=== PATIENT | male | born 1945 | race Two or more races ===

== ENCOUNTER 2020-07-26 15:22 | Emergency (ER) | payer OTHER ==
[~2020-07-26] VITALS: Ht 167.6 cm; Wt 74.8 kg
[2020-07-26 16:38] LABS: Basophils # (auto) 0 10 ^3/uL (0-0.2); Basophils % (auto) 0.1 % (0.0-2.0); Eosinophils # (auto) 0 10 ^3/uL (0-0.8); Hematocrit 43.4 % (41.0-53.0); Hemoglobin 15.1 g/dL (13.5-17.5); Lymphocytes # (auto) 0.6 10 ^3/uL (0.4-5.4); Lymphocytes % (auto) 9.9 % (10.0-50.0); Mean Corpuscular Hemoglobin 32.4 pg (28.0-32.0); Mean Corpuscular Hgb Conc. 34.7 g/dL (32.0-36.0); Mean Corpuscular Volume 93.5 fL (80.0-100.0); Monocytes # (auto) 0.6 10 ^3/uL (0-1.3); Monocytes % (auto) 9.1 % (0.0-12.0); Neutrophils % (auto) 80.9 % (37.0-80.0); Platelet Count (auto) 158 10^3/uL (140-450); Red Blood Cells 4.64 10^6/uL (4.5-5.90); Red Cell Distribution Width 12.8 % (11.8-14.3); White Blood Cell 6.1 10^3/uL (4.4-10.8)
[2020-07-26] MEDS ORDERED: ACETAMINOPHEN 500 MG TAB PO ONE (16:45)
[2020-07-26 16:47] LABS: INR 0.97 (0.9-1.15)
[2020-07-26 16:55] LABS: Albumin 3.5 g/dL (3.4-5.0); Calcium 8.8 mg/dL (8.5-10.1); Magnesium 2.1 mg/dL (1.6-2.6); Potassium 3.9 mmol/L (3.5-5.1)
[2020-07-26 16:59] LABS: BUN/Creatinine Ratio 17.7; Bilirubin, Total 0.4 mg/dL (0.2-1.0); Total Protein 8.3 g/dL (6.4-8.2)
[2020-07-26 19:58] VITALS: BP 130/71
== END 2020-07-26 22:39 | disposition home or self-care (01) ==
LOC: ER 15:22 → EDBD 15:22 → ER 22:39
DX: U07.1 COVID-19 (principal); J18.9 Pneumonia, unspecified organism; E11.9 Type 2 diabetes mellitus without complications; I10 Essential (primary) hypertension
CPT/HCPCS: 36415; 71045; 74018; 80053; 83605; 83690; 83735; 84484; 85025; 85610; 87426; 99284; C9803; U0003; 93005

== ENCOUNTER 2020-07-28 16:20 | Inpatient (IN) | payer OTHER ==
[~2020-07-28] VITALS: Ht 167.6 cm; Wt 63.0 kg
[2020-07-28] MEDS ORDERED: CHOLECALCIFEROL (VITD3) 2,000 UNIT CAP/TAB PO ONE (17:00)
[2020-07-28] MEDS ORDERED: ASCORBIC ACID 500 MG TAB PO ONE (17:00)
[2020-07-28] MEDS ORDERED: methylPREDNISolone SOD SUCC 125 MG/2 ML VL IV ONE (17:00)
[2020-07-28] MEDS ORDERED: ZINC SULFATE 220mg CAP or TAB PO ONE (17:00)
[2020-07-28] MEDS ORDERED: ONDANSETRON HCL 4 MG/2 ML VIAL IV ONE (18:45)
[2020-07-28 19:56] LABS: Basophils # (auto) 0 10 ^3/uL (0-0.2); Basophils % (auto) 0.1 % (0.0-2.0); Eosinophils # (auto) 0 10 ^3/uL (0-0.8); Hematocrit 41.9 % (41.0-53.0); Hemoglobin 14.6 g/dL (13.5-17.5); Lymphocytes # (auto) 0.8 10 ^3/uL (0.4-5.4); Lymphocytes % (auto) 9.1 % (10.0-50.0); Mean Corpuscular Hemoglobin 32.3 pg (28.0-32.0); Mean Corpuscular Hgb Conc. 34.8 g/dL (32.0-36.0); Mean Corpuscular Volume 92.7 fL (80.0-100.0); Monocytes # (auto) 0.8 10 ^3/uL (0-1.3); Monocytes % (auto) 9.8 % (0.0-12.0); Nucleated Red Blood Cells % 0.2 %; Red Blood Cells 4.52 10^6/uL (4.5-5.90); Red Cell Distribution Width 12.9 % (11.8-14.3); White Blood Cell 8.7 10^3/uL (4.4-10.8)
[2020-07-28 20:09] LABS: Potassium 4.5 mmol/L (3.5-5.1)
[2020-07-28 20:22] LABS: Albumin 3.2 g/dL (3.4-5.0); BUN/Creatinine Ratio 18.3; Bilirubin, Total 0.4 mg/dL (0.2-1.0); CRP High Sensitivity 13.5 mg/dL (< 0.3)
[2020-07-28] MEDS ORDERED: NITROGLYCERIN 0.4 MG SL TAB SL PRN (23:00)
[2020-07-28] MEDS ORDERED: MORPHINE SULFATE INJECTION 2 MG/ML SYRG IV PRN (23:00)
[2020-07-28] MEDS ORDERED: DEXTROSE (50%) 50ML SYRG IV PRN (23:00)
[2020-07-28] MEDS ORDERED: SODIUM CHLORIDE 0.9% 1,000 ML IV SCH (23:00)
[2020-07-28] MEDS ORDERED: guaiFENesin-DM 100/10mg/5ml SYR PO PRN (23:30)
[2020-07-28] MEDS ORDERED: guaiFENesin-DM 100/10mg/5ml SYR ONE (23:54)
[2020-07-29 06:23] LABS: Basophils # (auto) 0 10 ^3/uL (0-0.2); Basophils % (auto) 0.1 % (0.0-2.0); Eosinophils # (auto) 0 10 ^3/uL (0-0.8); Hematocrit 40.2 % (41.0-53.0); Hemoglobin 14.1 g/dL (13.5-17.5); Lymphocytes # (auto) 0.9 10 ^3/uL (0.4-5.4); Mean Corpuscular Hemoglobin 32.7 pg (28.0-32.0); Mean Corpuscular Volume 93.4 fL (80.0-100.0); Monocytes # (auto) 0.6 10 ^3/uL (0-1.3); Monocytes % (auto) 6.7 % (0.0-12.0); Neutrophils # (auto) 6.8 10 ^3/uL (1.6-8.6); Neutrophils % (auto) 82.2 % (37.0-80.0); Nucleated Red Blood Cells % 0.1 %; Red Cell Distribution Width 12.8 % (11.8-14.3); White Blood Cell 8.3 10^3/uL (4.4-10.8)
[2020-07-29 06:51] LABS: Albumin 2.8 g/dL (3.4-5.0); Calcium 8.9 mg/dL (8.5-10.1); Potassium 4.1 mmol/L (3.5-5.1)
[2020-07-29 07:00] LABS: Bilirubin, Total 0.2 mg/dL (0.2-1.0); Total Protein 7.2 g/dL (6.4-8.2)
[2020-07-29] MEDS: InsuLIN REG 1unit/0.01ml Soln (100units/ml) SC SCH ×4 (07:00→22:00)
[2020-07-29] MEDS: ACCU-CHEK COMFORT CURVE STRIP VI SCH ×4 (07:24→22:00)
[2020-07-29] MEDS: guaiFENesin-DM 100/10mg/5ml SYR PO PRN ×3 (08:57→20:38)
[2020-07-29] MEDS ORDERED: REMDESIVIR PER PHARMACY 0 ML IV SCH (10:15)
[2020-07-29] MEDS: BUDESONIDE (INHALATION) 180 MCG IH IN SCH ×2 (10:39→19:24)
[2020-07-29] MEDS: ZINC SULFATE 220mg CAP or TAB PO SCH (10:41)
[2020-07-29] MEDS: MULTIPLE VITAMIN TAB PO SCH (10:41)
[2020-07-29] MEDS: FAMOTIDINE 20 MG TAB PO SCH ×2 (10:42→22:00)
[2020-07-29] MEDS: CHOLECALCIFEROL (VITD3) 2,000 UNIT CAP/TAB PO SCH (10:42)
[2020-07-29] MEDS: ASCORBIC ACID 500 MG TAB PO SCH ×2 (10:42→22:32)
[2020-07-29] MEDS: ENOXAPARIN SOD 40 MG/0.4 ML SYRINGE SC SCH (10:42)
[2020-07-29] MEDS: DOXYCYCLINE 100MG/250ML 250 ML IV SCH ×2 (10:43→22:00)
[2020-07-29] MEDS: DexAMETHasone SOD PHOS 10MG/1ML VIAL INJ IV SCH (10:43)
[2020-07-29] MEDS: ACETAMINOPHEN 325 MG TAB PO PRN ×2 (12:28→18:50)
[2020-07-29] MEDS ORDERED: FUROSEMIDE 20 MG/2 ML VIAL IV ONE (14:15)
[2020-07-29] MEDS ORDERED: REMDESIVIR 200 MG in NS 210ml LOADING DOSE ADULT IV ONE (15:00)
[2020-07-29 17:23] VITALS: BP 146/78
[2020-07-29 17:38] VITALS: BP 144/75
[2020-07-29 19:32] VITALS: BP 139/89
[2020-07-29] MEDS: HYDROcodone-ACET 5/325MG TAB PO PRN (22:49)
[2020-07-30] VITALS: BP 133/79
[2020-07-30] MEDS: PROMETHAZINE W/CODEINE 5 ML ORAL SYRUP PO PRN ×3 (03:39→17:46)
[2020-07-30] MEDS: InsuLIN REG 1unit/0.01ml Soln (100units/ml) SC SCH ×4 (06:02→22:16)
[2020-07-30] MEDS: ACCU-CHEK COMFORT CURVE STRIP VI SCH ×4 (06:02→22:08)
[2020-07-30] MEDS: HYDROcodone-ACET 5/325MG TAB PO PRN ×4 (07:58→23:18)
[2020-07-30 08:00] VITALS: BP 133/63
[2020-07-30 08:21] LABS: Basophils # (auto) 0 10 ^3/uL (0-0.2); Basophils % (auto) 0.2 % (0.0-2.0); Eosinophils # (auto) 0 10 ^3/uL (0-0.8); Hematocrit 42.4 % (41.0-53.0); Hemoglobin 14.5 g/dL (13.5-17.5); Lymphocytes # (auto) 1.4 10 ^3/uL (0.4-5.4); Lymphocytes % (auto) 8.2 % (10.0-50.0); Mean Corpuscular Hemoglobin 31.9 pg (28.0-32.0); Mean Corpuscular Hgb Conc. 34.3 g/dL (32.0-36.0); Mean Corpuscular Volume 93.1 fL (80.0-100.0); Monocytes # (auto) 1.3 10 ^3/uL (0-1.3); Monocytes % (auto) 7.5 % (0.0-12.0); Neutrophils % (auto) 84.1 % (37.0-80.0); Nucleated Red Blood Cells % 0.1 %; Red Blood Cells 4.55 10^6/uL (4.5-5.90); White Blood Cell 16.7 10^3/uL (4.4-10.8)
[2020-07-30 08:49] LABS: Potassium 4.1 mmol/L (3.5-5.1)
[2020-07-30 09:04] LABS: Albumin 3.1 g/dL (3.4-5.0); Bilirubin, Total 0.3 mg/dL (0.2-1.0); Calcium 8.8 mg/dL (8.5-10.1); Total Protein 7.8 g/dL (6.4-8.2)
[2020-07-30] MEDS ORDERED: FUROSEMIDE 20 MG/2 ML VIAL IV SCH (10:00)
[2020-07-30] MEDS: BUDESONIDE (INHALATION) 180 MCG IH IN SCH ×2 (10:40→20:25)
[2020-07-30] MEDS: DexAMETHasone SOD PHOS 10MG/1ML VIAL INJ IV SCH (10:40)
[2020-07-30] MEDS: ZINC SULFATE 220mg CAP or TAB PO SCH (10:41)
[2020-07-30] MEDS: DOXYCYCLINE 100MG/250ML 250 ML IV SCH ×2 (10:41→22:08)
[2020-07-30] MEDS: CHOLECALCIFEROL (VITD3) 2,000 UNIT CAP/TAB PO SCH (10:41)
[2020-07-30] MEDS: ASCORBIC ACID 500 MG TAB PO SCH ×2 (10:41→22:07)
[2020-07-30] MEDS: FAMOTIDINE 20 MG TAB PO SCH ×2 (10:41→22:07)
[2020-07-30] MEDS: MULTIPLE VITAMIN TAB PO SCH (10:41)
[2020-07-30] MEDS: ENOXAPARIN SOD 40 MG/0.4 ML SYRINGE SC SCH (10:42)
[2020-07-30] MEDS: REMDESIVIR 100mg 100 MG in SODIUM CHL 0.9% 230 ML IV SCH (15:14)
[2020-07-30 16:00] VITALS: BP 132/75
[2020-07-30] MEDS: ALBUTEROL SULF HFA 90MCG INH 200DOSE IN PRN (20:25)
[2020-07-31] VITALS: BP 154/84
[2020-07-31] MEDS: PROMETHAZINE W/CODEINE 5 ML ORAL SYRUP PO PRN ×4 (02:20→23:58)
[2020-07-31] MEDS: HYDROcodone-ACET 5/325MG TAB PO PRN ×6 (05:08→23:57)
[2020-07-31] MEDS: InsuLIN REG 1unit/0.01ml Soln (100units/ml) SC SCH ×4 (06:50→21:54)
[2020-07-31] MEDS: ACCU-CHEK COMFORT CURVE STRIP VI SCH ×4 (06:50→21:46)
[2020-07-31 08:00] VITALS: BP 148/79
[2020-07-31 08:01] LABS: Basophils # (auto) 0 10 ^3/uL (0-0.2); Eosinophils # (auto) 0 10 ^3/uL (0-0.8); Hematocrit 40.2 % (41.0-53.0); Hemoglobin 13.7 g/dL (13.5-17.5); Lymphocytes # (auto) 0.8 10 ^3/uL (0.4-5.4); Mean Corpuscular Hemoglobin 31.8 pg (28.0-32.0); Mean Corpuscular Hgb Conc. 34.1 g/dL (32.0-36.0); Mean Corpuscular Volume 93.2 fL (80.0-100.0); Monocytes % (auto) 7.9 % (0.0-12.0); Neutrophils # (auto) 11.4 10 ^3/uL (1.6-8.6); Neutrophils % (auto) 86.1 % (37.0-80.0); Red Blood Cells 4.31 10^6/uL (4.5-5.90); Red Cell Distribution Width 12.8 % (11.8-14.3); White Blood Cell 13.2 10^3/uL (4.4-10.8)
[2020-07-31 08:21] LABS: Albumin 2.5 g/dL (3.4-5.0); Calcium 8.6 mg/dL (8.5-10.1); Potassium 4.3 mmol/L (3.5-5.1)
[2020-07-31 08:25] LABS: BUN/Creatinine Ratio 33.3; Bilirubin, Total 0.4 mg/dL (0.2-1.0); Total Protein 6.8 g/dL (6.4-8.2)
[2020-07-31] MEDS: ZINC SULFATE 220mg CAP or TAB PO SCH (10:15)
[2020-07-31] MEDS: MULTIPLE VITAMIN TAB PO SCH (10:15)
[2020-07-31] MEDS: BUDESONIDE (INHALATION) 180 MCG IH IN SCH ×2 (10:15→18:36)
[2020-07-31] MEDS: ASCORBIC ACID 500 MG TAB PO SCH ×2 (10:15→21:45)
[2020-07-31] MEDS: DexAMETHasone SOD PHOS 10MG/1ML VIAL INJ IV SCH (10:15)
[2020-07-31] MEDS: FAMOTIDINE 20 MG TAB PO SCH ×2 (10:15→21:45)
[2020-07-31] MEDS: CHOLECALCIFEROL (VITD3) 2,000 UNIT CAP/TAB PO SCH (10:16)
[2020-07-31] MEDS: ENOXAPARIN SOD 40 MG/0.4 ML SYRINGE SC SCH (10:16)
[2020-07-31] MEDS: DOXYCYCLINE 100MG/250ML 250 ML IV SCH ×2 (11:26→21:46)
[2020-07-31] MEDS: FUROSEMIDE 40 MG/4 ML VIAL IV SCH (11:26)
[2020-07-31] MEDS: ONDANSETRON HCL 4 MG/2 ML VIAL IV PRN (11:27)
[2020-07-31] MEDS: REMDESIVIR 100mg 100 MG in SODIUM CHL 0.9% 230 ML IV SCH (15:24)
[2020-07-31 16:24] VITALS: BP 143/81
[2020-07-31] MEDS: ALBUTEROL SULF HFA 90MCG INH 200DOSE IN PRN (18:36)
[2020-07-31] MEDS: DOCUSATE SOD 100 MG CAP PO PRN (21:46)
[2020-08-01] VITALS: BP 146/89
[2020-08-01 01:00] VITALS: BP 146/89
[2020-08-01] MEDS: HYDROcodone-ACET 5/325MG TAB PO PRN ×3 (05:38→13:20)
[2020-08-01] MEDS: InsuLIN REG 1unit/0.01ml Soln (100units/ml) SC SCH ×4 (05:48→22:00)
[2020-08-01] MEDS: ACCU-CHEK COMFORT CURVE STRIP VI SCH ×4 (05:48→22:00)
[2020-08-01] MEDS: ALBUTEROL SULF HFA 90MCG INH 200DOSE IN PRN ×2 (06:28→18:49)
[2020-08-01] MEDS: BUDESONIDE (INHALATION) 180 MCG IH IN SCH ×2 (06:28→18:49)
[2020-08-01 07:29] LABS: Basophils # (auto) 0 10 ^3/uL (0-0.2); Eosinophils # (auto) 0 10 ^3/uL (0-0.8); Hematocrit 41.1 % (41.0-53.0); Lymphocytes # (auto) 0.6 10 ^3/uL (0.4-5.4); Lymphocytes % (auto) 4.3 % (10.0-50.0); Mean Corpuscular Hemoglobin 31.7 pg (28.0-32.0); Mean Corpuscular Hgb Conc. 34.1 g/dL (32.0-36.0); Mean Corpuscular Volume 92.8 fL (80.0-100.0); Monocytes % (auto) 7.3 % (0.0-12.0); Neutrophils # (auto) 12.4 10 ^3/uL (1.6-8.6); Neutrophils % (auto) 88.4 % (37.0-80.0); Red Blood Cells 4.43 10^6/uL (4.5-5.90); Red Cell Distribution Width 12.5 % (11.8-14.3)
[2020-08-01 08:00] VITALS: BP 140/85
[2020-08-01 08:16] LABS: Albumin 2.7 g/dL (3.4-5.0); BUN/Creatinine Ratio 27.9; Bilirubin, Total 0.8 mg/dL (0.2-1.0); Calcium 8.5 mg/dL (8.5-10.1); Total Protein 7.1 g/dL (6.4-8.2)
[2020-08-01] MEDS: ZINC SULFATE 220mg CAP or TAB PO SCH (09:48)
[2020-08-01] MEDS: MULTIPLE VITAMIN TAB PO SCH (09:48)
[2020-08-01] MEDS: DexAMETHasone SOD PHOS 10MG/1ML VIAL INJ IV SCH (09:48)
[2020-08-01] MEDS: DOXYCYCLINE 100MG/250ML 250 ML IV SCH ×2 (09:48→22:37)
[2020-08-01] MEDS: FAMOTIDINE 20 MG TAB PO SCH ×2 (09:49→22:37)
[2020-08-01] MEDS: ASCORBIC ACID 500 MG TAB PO SCH ×2 (09:49→22:36)
[2020-08-01] MEDS: CHOLECALCIFEROL (VITD3) 2,000 UNIT CAP/TAB PO SCH (09:49)
[2020-08-01] MEDS: ENOXAPARIN SOD 40 MG/0.4 ML SYRINGE SC SCH (09:49)
[2020-08-01] MEDS: FUROSEMIDE 40 MG/4 ML VIAL IV SCH (09:50)
[2020-08-01] MEDS: ONDANSETRON HCL 4 MG/2 ML VIAL IV PRN (09:50)
[2020-08-01] MEDS: PROMETHAZINE W/CODEINE 5 ML ORAL SYRUP PO PRN ×2 (12:13→18:25)
[2020-08-01] MEDS: REMDESIVIR 100mg 100 MG in SODIUM CHL 0.9% 230 ML IV SCH (15:15)
[2020-08-01 16:00] VITALS: BP 141/83
[2020-08-01] MEDS ORDERED: ACETAMINOPHEN 650 mg PER 20.3 mL UD PO ONE (16:30)
[2020-08-01] MEDS ORDERED: methylPREDNISolone SOD SUCC 40 MG/ML VL IV ONE (16:30)
[2020-08-01] MEDS ORDERED: diphenhdrAMINE HCL 50 MG/1 ML VL IV ONE (16:30)
[2020-08-01] MEDS ORDERED: TOCILIZUMAB 400 MG in SODIUM CHL 0.9% 80 ML IV ONE (17:00)
[2020-08-01 18:00] VITALS: BP 141/82
[2020-08-01] MEDS: DOCUSATE SOD 100 MG CAP PO PRN (22:36)
[2020-08-02] VITALS: BP 139/83
[2020-08-02] MEDS: PROMETHAZINE W/CODEINE 5 ML ORAL SYRUP PO PRN ×2 (00:35→13:17)
[2020-08-02 00:50] VITALS: BP 139/83
[2020-08-02] MEDS: ONDANSETRON HCL 4 MG/2 ML VIAL IV PRN ×2 (00:52→20:19)
[2020-08-02] MEDS: HYDROcodone-ACET 5/325MG TAB PO PRN ×3 (03:45→20:20)
[2020-08-02] MEDS: BUDESONIDE (INHALATION) 180 MCG IH IN SCH ×2 (06:07→19:06)
[2020-08-02] MEDS: ALBUTEROL SULF HFA 90MCG INH 200DOSE IN PRN ×2 (06:07→19:06)
[2020-08-02] MEDS: ACCU-CHEK COMFORT CURVE STRIP VI SCH ×4 (06:24→21:20)
[2020-08-02] MEDS: InsuLIN REG 1unit/0.01ml Soln (100units/ml) SC SCH ×4 (06:24→21:21)
[2020-08-02 06:36] LABS: Basophils # (auto) 0 10 ^3/uL (0-0.2); Basophils % (auto) 0.1 % (0.0-2.0); Eosinophils # (auto) 0 10 ^3/uL (0-0.8); Lymphocytes # (auto) 0.6 10 ^3/uL (0.4-5.4); Mean Corpuscular Hemoglobin 31.5 pg (28.0-32.0); Mean Corpuscular Hgb Conc. 34.2 g/dL (32.0-36.0); Monocytes % (auto) 6.7 % (0.0-12.0); Neutrophils # (auto) 13.2 10 ^3/uL (1.6-8.6); Neutrophils % (auto) 89.2 % (37.0-80.0); Nucleated Red Blood Cells % 0.2 %; Red Blood Cells 4.46 10^6/uL (4.5-5.90); Red Cell Distribution Width 12.7 % (11.8-14.3); White Blood Cell 14.7 10^3/uL (4.4-10.8)
[2020-08-02 07:06] LABS: Potassium 4.3 mmol/L (3.5-5.1)
[2020-08-02 07:20] LABS: Albumin 2.4 g/dL (3.4-5.0); BUN/Creatinine Ratio 26.1; Bilirubin, Total 0.8 mg/dL (0.2-1.0); Calcium 8.3 mg/dL (8.5-10.1); Total Protein 6.7 g/dL (6.4-8.2)
[2020-08-02 08:00] VITALS: BP 149/68
[2020-08-02] MEDS: ZINC SULFATE 220mg CAP or TAB PO SCH (09:47)
[2020-08-02] MEDS: MULTIPLE VITAMIN TAB PO SCH (09:47)
[2020-08-02] MEDS: FAMOTIDINE 20 MG TAB PO SCH ×2 (09:48→20:20)
[2020-08-02] MEDS: ASCORBIC ACID 500 MG TAB PO SCH ×2 (09:48→20:20)
[2020-08-02] MEDS: CHOLECALCIFEROL (VITD3) 2,000 UNIT CAP/TAB PO SCH (09:48)
[2020-08-02] MEDS: ENOXAPARIN SOD 40 MG/0.4 ML SYRINGE SC SCH (09:58)
[2020-08-02] MEDS: DexAMETHasone SOD PHOS 10MG/1ML VIAL INJ IV SCH (09:58)
[2020-08-02] MEDS: FUROSEMIDE 40 MG/4 ML VIAL IV SCH (09:58)
[2020-08-02] MEDS ORDERED: ACETAMINOPHEN 650 mg PER 20.3 mL UD PO ONE (10:00)
[2020-08-02] MEDS ORDERED: diphenhdrAMINE HCL 50 MG/1 ML VL IV ONE (10:00)
[2020-08-02] MEDS: DOXYCYCLINE 100MG/250ML 250 ML IV SCH ×2 (10:06→21:19)
[2020-08-02] MEDS ORDERED: TOCILIZUMAB 400 MG in SODIUM CHL 0.9% 80 ML IV ONE (10:30)
[2020-08-02 11:20] VITALS: BP 144/66
[2020-08-02 16:00] VITALS: BP 133/77
[2020-08-02] MEDS: REMDESIVIR 100mg 100 MG in SODIUM CHL 0.9% 230 ML IV SCH (16:24)
[2020-08-03] VITALS: BP 134/78
[2020-08-03] MEDS: PROMETHAZINE W/CODEINE 5 ML ORAL SYRUP PO PRN ×2 (03:51→10:08)
[2020-08-03] MEDS: HYDROcodone-ACET 5/325MG TAB PO PRN (03:52)
[2020-08-03] MEDS: ONDANSETRON HCL 4 MG/2 ML VIAL IV PRN ×2 (03:52→09:12)
[2020-08-03] MEDS: ACCU-CHEK COMFORT CURVE STRIP VI SCH ×4 (05:52→21:19)
[2020-08-03] MEDS: InsuLIN REG 1unit/0.01ml Soln (100units/ml) SC SCH ×4 (05:53→21:30)
[2020-08-03 08:00] VITALS: BP 155/75
[2020-08-03] MEDS: FUROSEMIDE 40 MG/4 ML VIAL IV SCH (09:13)
[2020-08-03] MEDS: ZINC SULFATE 220mg CAP or TAB PO SCH (09:13)
[2020-08-03] MEDS: MULTIPLE VITAMIN TAB PO SCH (09:13)
[2020-08-03] MEDS: CHOLECALCIFEROL (VITD3) 2,000 UNIT CAP/TAB PO SCH (09:13)
[2020-08-03] MEDS: ENOXAPARIN SOD 40 MG/0.4 ML SYRINGE SC SCH (09:13)
[2020-08-03] MEDS: DexAMETHasone SOD PHOS 10MG/1ML VIAL INJ IV SCH (09:14)
[2020-08-03] MEDS: FAMOTIDINE 20 MG TAB PO SCH ×2 (09:14→21:19)
[2020-08-03] MEDS: ASCORBIC ACID 500 MG TAB PO SCH ×2 (09:14→21:19)
[2020-08-03] MEDS: BUDESONIDE (INHALATION) 180 MCG IH IN SCH ×2 (09:42→18:43)
[2020-08-03 10:57] LABS: Basophils # (auto) 0 10 ^3/uL (0-0.2); Basophils % (auto) 0.1 % (0.0-2.0); Eosinophils # (auto) 0 10 ^3/uL (0-0.8); Eosinophils % (auto) 0.1 % (0.0-7.0); Hematocrit 44.4 % (41.0-53.0); Hemoglobin 15.2 g/dL (13.5-17.5); Lymphocytes # (auto) 0.6 10 ^3/uL (0.4-5.4); Lymphocytes % (auto) 3.1 % (10.0-50.0); Mean Corpuscular Hemoglobin 31.4 pg (28.0-32.0); Mean Corpuscular Hgb Conc. 34.1 g/dL (32.0-36.0); Mean Corpuscular Volume 92.1 fL (80.0-100.0); Monocytes % (auto) 4.9 % (0.0-12.0); Neutrophils # (auto) 18.2 10 ^3/uL (1.6-8.6); Neutrophils % (auto) 91.8 % (37.0-80.0); Red Blood Cells 4.82 10^6/uL (4.5-5.90); Red Cell Distribution Width 13.3 % (11.8-14.3); White Blood Cell 19.8 10^3/uL (4.4-10.8)
[2020-08-03 11:26] LABS: Calcium 8.1 mg/dL (8.5-10.1)
[2020-08-03] MEDS: LORazepam 2MG/ML-1ML VIAL IV PRN ×2 (12:01→16:18)
[2020-08-03 12:02] LABS: Potassium 4.4 mmol/L (3.5-5.1)
[2020-08-03 16:00] VITALS: BP 149/77
[2020-08-03 16:26] VITALS: BP 155/75
[2020-08-03] MEDS: ALBUTEROL SULF HFA 90MCG INH 200DOSE IN PRN (20:41)
[2020-08-04] VITALS: BP 118/71
[2020-08-04] MEDS: ACETAMINOPHEN 325 MG TAB PO PRN (02:55)
[2020-08-04] MEDS: LORazepam 2MG/ML-1ML VIAL IV PRN (04:15)
[2020-08-04] MEDS: PROMETHAZINE W/CODEINE 5 ML ORAL SYRUP PO PRN (04:15)
[2020-08-04] MEDS: InsuLIN REG 1unit/0.01ml Soln (100units/ml) SC SCH ×4 (06:43→22:14)
[2020-08-04] MEDS: ACCU-CHEK COMFORT CURVE STRIP VI SCH ×4 (06:43→22:03)
[2020-08-04] MEDS: BUDESONIDE (INHALATION) 180 MCG IH IN SCH ×2 (06:45→21:12)
[2020-08-04 06:52] LABS: Basophils # (auto) 0 10 ^3/uL (0-0.2); Basophils % (auto) 0.1 % (0.0-2.0); Eosinophils # (auto) 0 10 ^3/uL (0-0.8); Eosinophils % (auto) 0.2 % (0.0-7.0); Hematocrit 42.3 % (41.0-53.0); Hemoglobin 14.5 g/dL (13.5-17.5); Lymphocytes # (auto) 0.5 10 ^3/uL (0.4-5.4); Lymphocytes % (auto) 3.1 % (10.0-50.0); Mean Corpuscular Hemoglobin 31.9 pg (28.0-32.0); Mean Corpuscular Hgb Conc. 34.4 g/dL (32.0-36.0); Mean Corpuscular Volume 92.6 fL (80.0-100.0); Monocytes % (auto) 5.5 % (0.0-12.0); Neutrophils % (auto) 91.1 % (37.0-80.0); Red Blood Cells 4.56 10^6/uL (4.5-5.90); Red Cell Distribution Width 12.5 % (11.8-14.3); White Blood Cell 17.6 10^3/uL (4.4-10.8)
[2020-08-04 07:03] LABS: BUN/Creatinine Ratio 38.8; Calcium 8.3 mg/dL (8.5-10.1); Potassium 4.9 mmol/L (3.5-5.1)
[2020-08-04 08:00] VITALS: BP 129/75
[2020-08-04] MEDS: DexAMETHasone SOD PHOS 10MG/1ML VIAL INJ IV SCH (10:34)
[2020-08-04] MEDS: CHOLECALCIFEROL (VITD3) 2,000 UNIT CAP/TAB PO SCH (10:35)
[2020-08-04] MEDS: FAMOTIDINE 20 MG TAB PO SCH ×2 (10:35→22:00)
[2020-08-04] MEDS: ENOXAPARIN SOD 40 MG/0.4 ML SYRINGE SC SCH (10:35)
[2020-08-04] MEDS: MULTIPLE VITAMIN TAB PO SCH (10:35)
[2020-08-04] MEDS: ZINC SULFATE 220mg CAP or TAB PO SCH (10:35)
[2020-08-04] MEDS: ASCORBIC ACID 500 MG TAB PO SCH ×2 (10:35→22:00)
[2020-08-04] MEDS: FUROSEMIDE 40 MG/4 ML VIAL IV SCH (14:22)
[2020-08-04 16:00] VITALS: BP 147/76
[2020-08-04] MEDS: ALBUTEROL SULF HFA 90MCG INH 200DOSE IN PRN (21:12)
[2020-08-05] VITALS: BP 127/76
[2020-08-05] MEDS: LORazepam 2MG/ML-1ML VIAL IV PRN ×4 (02:00→19:10)
[2020-08-05] MEDS: ACCU-CHEK COMFORT CURVE STRIP VI SCH ×4 (05:51→21:50)
[2020-08-05] MEDS: InsuLIN REG 1unit/0.01ml Soln (100units/ml) SC SCH ×4 (06:02→22:17)
[2020-08-05 08:00] VITALS: BP 136/80
[2020-08-05] MEDS: DexAMETHasone SOD PHOS 10MG/1ML VIAL INJ IV SCH (09:36)
[2020-08-05] MEDS: FUROSEMIDE 40 MG/4 ML VIAL IV SCH (09:38)
[2020-08-05] MEDS: ZINC SULFATE 220mg CAP or TAB PO SCH (09:38)
[2020-08-05] MEDS: CHOLECALCIFEROL (VITD3) 2,000 UNIT CAP/TAB PO SCH (09:39)
[2020-08-05] MEDS: FAMOTIDINE 20 MG TAB PO SCH ×2 (09:39→21:49)
[2020-08-05] MEDS: ENOXAPARIN SOD 40 MG/0.4 ML SYRINGE SC SCH (09:39)
[2020-08-05] MEDS: ASCORBIC ACID 500 MG TAB PO SCH ×2 (09:39→21:50)
[2020-08-05] MEDS: MULTIPLE VITAMIN TAB PO SCH (09:39)
[2020-08-05] MEDS: BUDESONIDE (INHALATION) 180 MCG IH IN SCH ×2 (10:00→19:38)
[2020-08-05 10:19] LABS: Basophils # (auto) 0.1 10 ^3/uL (0-0.2); Basophils % (auto) 0.3 % (0.0-2.0); Eosinophils # (auto) 0.2 10 ^3/uL (0-0.8); Eosinophils % (auto) 1.1 % (0.0-7.0); Hematocrit 46.1 % (41.0-53.0); Hemoglobin 15.9 g/dL (13.5-17.5); Lymphocytes # (auto) 0.3 10 ^3/uL (0.4-5.4); Lymphocytes % (auto) 1.5 % (10.0-50.0); Mean Corpuscular Hemoglobin 31.6 pg (28.0-32.0); Mean Corpuscular Hgb Conc. 34.4 g/dL (32.0-36.0); Monocytes # (auto) 0.6 10 ^3/uL (0-1.3); Monocytes % (auto) 2.9 % (0.0-12.0); Neutrophils % (auto) 94.2 % (37.0-80.0); Nucleated Red Blood Cells % 0.1 %; Red Blood Cells 5.02 10^6/uL (4.5-5.90); Red Cell Distribution Width 12.9 % (11.8-14.3); White Blood Cell 21.3 10^3/uL (4.4-10.8)
[2020-08-05 10:43] LABS: BUN/Creatinine Ratio 48.2; Calcium 8.5 mg/dL (8.5-10.1); Potassium 4.3 mmol/L (3.5-5.1)
[2020-08-05 16:02] VITALS: BP 120/87
[2020-08-06] VITALS: BP 133/70
[2020-08-06] MEDS: BUDESONIDE (INHALATION) 180 MCG IH IN SCH ×2 (06:00→22:00)
[2020-08-06 06:06] LABS: Hematocrit 47.6 % (41.0-53.0); Hemoglobin 16.3 g/dL (13.5-17.5); Mean Corpuscular Hemoglobin 31.7 pg (28.0-32.0); Mean Corpuscular Hgb Conc. 34.2 g/dL (32.0-36.0); Mean Corpuscular Volume 92.6 fL (80.0-100.0); Red Blood Cells 5.14 10^6/uL (4.5-5.90); Red Cell Distribution Width 12.9 % (11.8-14.3); White Blood Cell 28.5 10^3/uL (4.4-10.8)
[2020-08-06 06:15] LABS: Basophils % (manual) 0 (0.0-2.0); Blast Cells 0; Eosinophils % (manual) 0 (0-7); Metamyelocytes % 0; Myelocytes % 0; Promyelocytes % 0; Reactive Lymphocytes 0
[2020-08-06 06:18] LABS: Calcium 8.5 mg/dL (8.5-10.1); Potassium 4.5 mmol/L (3.5-5.1)
[2020-08-06 06:21] LABS: BUN/Creatinine Ratio 54.5
[2020-08-06] MEDS: InsuLIN REG 1unit/0.01ml Soln (100units/ml) SC SCH ×4 (06:37→22:49)
[2020-08-06] MEDS: ACCU-CHEK COMFORT CURVE STRIP VI SCH ×4 (06:38→22:24)
[2020-08-06 08:00] VITALS: BP 107/87
[2020-08-06 08:32] VITALS: BP 107/87
[2020-08-06] MEDS: LORazepam 2MG/ML-1ML VIAL IV PRN ×3 (09:01→22:52)
[2020-08-06] MEDS: DexAMETHasone SOD PHOS 10MG/1ML VIAL INJ IV SCH (09:09)
[2020-08-06] MEDS: ENOXAPARIN SOD 40 MG/0.4 ML SYRINGE SC SCH (09:10)
[2020-08-06] MEDS: ZINC SULFATE 220mg CAP or TAB PO SCH (10:00)
[2020-08-06] MEDS: ASCORBIC ACID 500 MG TAB PO SCH ×2 (10:00→22:00)
[2020-08-06] MEDS: CHOLECALCIFEROL (VITD3) 2,000 UNIT CAP/TAB PO SCH (10:00)
[2020-08-06] MEDS: MULTIPLE VITAMIN TAB PO SCH (10:00)
[2020-08-06] MEDS: FAMOTIDINE 20 MG TAB PO SCH (10:00)
[2020-08-06] MEDS: FUROSEMIDE 40 MG/4 ML VIAL IV SCH (10:24)
[2020-08-06 12:10] LABS: Band Neutrophils % (manual) 2; Lymphocytes % (manual) 2 (10.0-50.0); Monocytes % (manual) 2 (0-12)
[2020-08-06] MEDS ORDERED: TPN PER PHARMACY 0 ML IV SCH (12:15)
[2020-08-06] MEDS ORDERED: PIPERACILLIN-TAZOB 3.375GM 100 ML IV ONE (12:15)
[2020-08-06] MEDS ORDERED: DEXTROSE (50%) 50ML SYRG IV PRN (13:15)
[2020-08-06 13:31] LABS: Albumin 3.2 g/dL (3.4-5.0); Magnesium 3.2 mg/dL (1.6-2.6)
[2020-08-06 13:36] LABS: Bilirubin, Direct 0.5 mg/dL (0-0.2); Bilirubin, Total 1.3 mg/dL (0.2-1.0); Phosphorus 3.4 mg/dL (2.5-4.90); Pre Albumin 33.6 mg/dL (20.0-40.0); Total Protein 7.2 g/dL (6.4-8.2)
[2020-08-06 14:00] VITALS: BP 107/87
[2020-08-06] MEDS: MORPHINE SULFATE INJECTION 2 MG/ML SYRG IV PRN (15:27)
[2020-08-06 15:43] VITALS: BP 110/84
[2020-08-06 18:20] VITALS: BP 112/71
[2020-08-06] MEDS ORDERED: PPN PER PHARMACY IV NR ×3 (20:00)
[2020-08-06] MEDS: FAMOTIDINE (10MG/ML) 2ML VL IV SCH (22:23)
[2020-08-06] MEDS: PIPERACILLIN-TAZOB 3.375GM 100 ML IV SCH (22:23)
[2020-08-06] MEDS: ENOXAPARIN SOD 60 MG/0.6 ML SYRINGE SC SCH (22:24)
[2020-08-07] VITALS: BP 112/71
[2020-08-07] MEDS ORDERED: DEXTROSE (50%) 50ML SYRG IV SCH
[2020-08-07] MEDS: PIPERACILLIN-TAZOB 3.375GM 100 ML IV SCH ×3 (05:56→21:59)
[2020-08-07] MEDS: ACCU-CHEK COMFORT CURVE STRIP VI SCH ×4 (05:57→17:57)
[2020-08-07] MEDS: InsuLIN REG 1unit/0.01ml Soln (100units/ml) SC SCH ×4 (05:59→17:57)
[2020-08-07 08:00] VITALS: BP 143/78
[2020-08-07 08:46] LABS: Potassium 4.1 mmol/L (3.5-5.1)
[2020-08-07 08:53] LABS: BUN/Creatinine Ratio 54.4; Bilirubin, Total 1.6 mg/dL (0.2-1.0); Calcium 8.8 mg/dL (8.5-10.1); Magnesium 3.8 mg/dL (1.6-2.6)
[2020-08-07 09:24] LABS: Mean Corpuscular Hgb Conc. 33.5 g/dL (32.0-36.0)
[2020-08-07 09:25] LABS: Hematocrit 50.6 % (41.0-53.0); Mean Corpuscular Hemoglobin 31.4 pg (28.0-32.0); Mean Corpuscular Volume 93.9 fL (80.0-100.0); Red Blood Cells 5.39 10^6/uL (4.5-5.90); Red Cell Distribution Width 13.3 % (11.8-14.3)
[2020-08-07 09:30] LABS: White Blood Cell 37.5 10^3/uL (4.4-10.8)
[2020-08-07 09:31] LABS: Basophils % (manual) 0 (0.0-2.0); Blast Cells 0; Eosinophils % (manual) 0 (0-7); Metamyelocytes % 0; Myelocytes % 0; Promyelocytes % 0; Reactive Lymphocytes 0
[2020-08-07] MEDS: ASCORBIC ACID 500 MG TAB PO SCH ×2 (10:00→21:59)
[2020-08-07] MEDS: BUDESONIDE (INHALATION) 180 MCG IH IN SCH ×2 (10:00→19:51)
[2020-08-07] MEDS: MULTIPLE VITAMIN TAB PO SCH (10:00)
[2020-08-07] MEDS: CHOLECALCIFEROL (VITD3) 2,000 UNIT CAP/TAB PO SCH (10:00)
[2020-08-07] MEDS: ZINC SULFATE 220mg CAP or TAB PO SCH (10:00)
[2020-08-07] MEDS: DexAMETHasone SOD PHOS 10MG/1ML VIAL INJ IV SCH (10:07)
[2020-08-07] MEDS: ENOXAPARIN SOD 60 MG/0.6 ML SYRINGE SC SCH ×2 (10:08→21:59)
[2020-08-07] MEDS: FUROSEMIDE 40 MG/4 ML VIAL IV SCH (10:08)
[2020-08-07] MEDS: FAMOTIDINE (10MG/ML) 2ML VL IV SCH ×2 (10:56→21:59)
[2020-08-07 13:47] LABS: Band Neutrophils % (manual) 1; Lymphocytes % (manual) 1 (10.0-50.0); Monocytes % (manual) 3 (0-12)
[2020-08-07 16:00] VITALS: BP 127/91
[2020-08-07 19:50] VITALS: BP 127/91
[2020-08-07] MEDS ORDERED: PPN PER PHARMACY IV NR ×5 (20:00)
[2020-08-07] MEDS: LORazepam 2MG/ML-1ML VIAL IV PRN (23:43)
[2020-08-08] VITALS: BP 130/88
[2020-08-08] MEDS: ACCU-CHEK COMFORT CURVE STRIP VI SCH ×4 (00:02→18:31)
[2020-08-08] MEDS: InsuLIN REG 1unit/0.01ml Soln (100units/ml) SC SCH ×4 (00:12→18:34)
[2020-08-08 01:22] LABS: Urine Amorphous Crystal FEW /hpf (None Seen); Urine Bacteria FEW /hpf (None Seen); Urine Blood 3+ /uL (Negative); Urine Mucus FEW (None Seen); Urine Specific Gravity 1.029 (1.001-1.035); Urine WBC 11 /hpf (0 - 3)
[2020-08-08 02:40] VITALS: BP 130/88
[2020-08-08] MEDS: PIPERACILLIN-TAZOB 3.375GM 100 ML IV SCH ×3 (05:52→20:53)
[2020-08-08 06:32] LABS: Mean Corpuscular Hemoglobin 31.9 pg (28.0-32.0); Red Blood Cells 5.33 10^6/uL (4.5-5.90); Red Cell Distribution Width 13.1 % (11.8-14.3)
[2020-08-08 06:35] LABS: Hematocrit 49.6 % (41.0-53.0); Mean Corpuscular Hgb Conc. 34.2 g/dL (32.0-36.0); Mean Corpuscular Volume 93.2 fL (80.0-100.0)
[2020-08-08 06:37] LABS: White Blood Cell 36.7 10^3/uL (4.4-10.8)
[2020-08-08 06:38] LABS: Basophils % (manual) 0 (0.0-2.0); Blast Cells 0; Eosinophils % (manual) 0 (0-7); Metamyelocytes % 0; Myelocytes % 0; Promyelocytes % 0; Reactive Lymphocytes 0
[2020-08-08 06:43] LABS: Calcium 8.9 mg/dL (8.5-10.1); Magnesium 3.8 mg/dL (1.6-2.6); Potassium 3.6 mmol/L (3.5-5.1)
[2020-08-08 06:49] LABS: Albumin 3.2 g/dL (3.4-5.0); BUN/Creatinine Ratio 56.6; Bilirubin, Total 1.3 mg/dL (0.2-1.0); Phosphorus 3.9 mg/dL (2.5-4.90); Total Protein 7.1 g/dL (6.4-8.2)
[2020-08-08 07:25] LABS: Band Neutrophils % (manual) 9; Lymphocytes % (manual) 2 (10.0-50.0); Monocytes % (manual) 5 (0-12)
[2020-08-08 08:00] VITALS: BP 137/74
[2020-08-08] MEDS: MULTIPLE VITAMIN TAB PO SCH (10:00)
[2020-08-08] MEDS: CHOLECALCIFEROL (VITD3) 2,000 UNIT CAP/TAB PO SCH (10:00)
[2020-08-08] MEDS: ZINC SULFATE 220mg CAP or TAB PO SCH (10:00)
[2020-08-08] MEDS: ASCORBIC ACID 500 MG TAB PO SCH ×2 (10:00→20:53)
[2020-08-08] MEDS: ALBUTEROL SULF HFA 90MCG INH 200DOSE IN PRN (10:09)
[2020-08-08] MEDS: BUDESONIDE (INHALATION) 180 MCG IH IN SCH ×2 (10:09→18:37)
[2020-08-08] MEDS: DexAMETHasone SOD PHOS 10MG/1ML VIAL INJ IV SCH (11:39)
[2020-08-08] MEDS: FUROSEMIDE 40 MG/4 ML VIAL IV SCH (11:40)
[2020-08-08] MEDS: FAMOTIDINE (10MG/ML) 2ML VL IV SCH ×2 (11:40→20:52)
[2020-08-08] MEDS: LORazepam 2MG/ML-1ML VIAL IV PRN ×2 (11:48→20:53)
[2020-08-08] MEDS: ENOXAPARIN SOD 60 MG/0.6 ML SYRINGE SC SCH ×2 (11:48→20:53)
[2020-08-08 16:00] VITALS: BP 107/75
[2020-08-08] MEDS ORDERED: PPN PER PHARMACY IV NR ×6 (20:00)
[2020-08-09] VITALS: BP 152/74
[2020-08-09] MEDS: ACCU-CHEK COMFORT CURVE STRIP VI SCH ×4 (00:35→17:34)
[2020-08-09] MEDS: MORPHINE SULFATE INJECTION 2 MG/ML SYRG IV PRN (01:00)
[2020-08-09] MEDS: LORazepam 2MG/ML-1ML VIAL IV PRN ×4 (03:06→20:18)
[2020-08-09] MEDS: PIPERACILLIN-TAZOB 3.375GM 100 ML IV SCH ×3 (05:31→21:15)
[2020-08-09] MEDS: InsuLIN REG 1unit/0.01ml Soln (100units/ml) SC SCH ×4 (05:32→17:34)
[2020-08-09 08:00] VITALS: BP 111/70
[2020-08-09] MEDS: CHOLECALCIFEROL (VITD3) 2,000 UNIT CAP/TAB PO SCH (10:00)
[2020-08-09] MEDS: ZINC SULFATE 220mg CAP or TAB PO SCH (10:00)
[2020-08-09] MEDS: ASCORBIC ACID 500 MG TAB PO SCH ×2 (10:00→20:50)
[2020-08-09] MEDS: ENOXAPARIN SOD 60 MG/0.6 ML SYRINGE SC SCH ×2 (10:00→21:14)
[2020-08-09] MEDS: MULTIPLE VITAMIN TAB PO SCH (10:00)
[2020-08-09] MEDS: DexAMETHasone SOD PHOS 10MG/1ML VIAL INJ IV SCH (10:46)
[2020-08-09] MEDS: FAMOTIDINE (10MG/ML) 2ML VL IV SCH ×2 (10:47→21:14)
[2020-08-09] MEDS: FUROSEMIDE 40 MG/4 ML VIAL IV SCH (10:47)
[2020-08-09 11:03] LABS: Basophils # (auto) 0.2 10 ^3/uL (0-0.2); Basophils % (auto) 0.7 % (0.0-2.0); Eosinophils # (auto) 0 10 ^3/uL (0-0.8); Eosinophils % (auto) 0.1 % (0.0-7.0); Hematocrit 52.1 % (41.0-53.0); Hemoglobin 17.1 g/dL (13.5-17.5); Lymphocytes # (auto) 0.9 10 ^3/uL (0.4-5.4); Lymphocytes % (auto) 2.9 % (10.0-50.0); Mean Corpuscular Hemoglobin 31.3 pg (28.0-32.0); Mean Corpuscular Hgb Conc. 32.8 g/dL (32.0-36.0); Mean Corpuscular Volume 95.2 fL (80.0-100.0); Monocytes # (auto) 1.7 10 ^3/uL (0-1.3); Monocytes % (auto) 5.8 % (0.0-12.0); Neutrophils # (auto) 27.2 10 ^3/uL (1.6-8.6); Neutrophils % (auto) 90.5 % (37.0-80.0); Nucleated Red Blood Cells % 0.1 %; Red Blood Cells 5.47 10^6/uL (4.5-5.90); Red Cell Distribution Width 13.4 % (11.8-14.3)
[2020-08-09 11:26] LABS: Albumin 2.8 g/dL (3.4-5.0); Calcium 8.4 mg/dL (8.5-10.1); Magnesium 3.9 mg/dL (1.6-2.6); Potassium 3.8 mmol/L (3.5-5.1)
[2020-08-09 11:30] LABS: BUN/Creatinine Ratio 56.1; Phosphorus 4.2 mg/dL (2.5-4.90); Total Protein 6.8 g/dL (6.4-8.2)
[2020-08-09 16:00] VITALS: BP 114/89
[2020-08-09] MEDS: BUDESONIDE (INHALATION) 180 MCG IH IN SCH (19:51)
[2020-08-09] MEDS: ALBUTEROL SULF HFA 90MCG INH 200DOSE IN PRN (19:52)
[2020-08-09] MEDS ORDERED: PPN PER PHARMACY IV NR ×6 (20:00)
[2020-08-09 23:39] VITALS: BP 69/44
[2020-08-10] MEDS: ACCU-CHEK COMFORT CURVE STRIP VI SCH ×5 (00:19→23:54)
[2020-08-10] MEDS: InsuLIN REG 1unit/0.01ml Soln (100units/ml) SC SCH ×5 (00:26→23:58)
[2020-08-10 00:46] VITALS: BP 138/88
[2020-08-10 03:56] VITALS: BP 98/76
[2020-08-10] MEDS: MORPHINE SULFATE INJECTION 2 MG/ML SYRG IV PRN (03:59)
[2020-08-10] MEDS: PIPERACILLIN-TAZOB 3.375GM 100 ML IV SCH ×3 (05:27→22:15)
[2020-08-10 06:26] LABS: Hematocrit 51.8 % (41.0-53.0); Hemoglobin 17.4 g/dL (13.5-17.5); Mean Corpuscular Hemoglobin 31.8 pg (28.0-32.0); Mean Corpuscular Hgb Conc. 33.6 g/dL (32.0-36.0); Mean Corpuscular Volume 94.5 fL (80.0-100.0); Red Blood Cells 5.48 10^6/uL (4.5-5.90); Red Cell Distribution Width 13.4 % (11.8-14.3); White Blood Cell 27.9 10^3/uL (4.4-10.8)
[2020-08-10 06:42] LABS: Basophils % (manual) 0 (0.0-2.0); Blast Cells 0; Eosinophils % (manual) 0 (0-7); Metamyelocytes % 0; Myelocytes % 0; Promyelocytes % 0; Reactive Lymphocytes 0
[2020-08-10] MEDS: BUDESONIDE (INHALATION) 180 MCG IH IN SCH ×2 (06:42→19:25)
[2020-08-10] MEDS: ALBUTEROL SULF HFA 90MCG INH 200DOSE IN PRN (06:43)
[2020-08-10 06:55] LABS: Potassium 4.2 mmol/L (3.5-5.1)
[2020-08-10 07:10] LABS: Albumin 2.7 g/dL (3.4-5.0); BUN/Creatinine Ratio 56.6; Bilirubin, Total 2.6 mg/dL (0.2-1.0); Calcium 8.6 mg/dL (8.5-10.1); Magnesium 3.9 mg/dL (1.6-2.6); Total Protein 6.7 g/dL (6.4-8.2)
[2020-08-10 08:00] VITALS: BP 128/73
[2020-08-10 09:08] LABS: Band Neutrophils % (manual) 10; Lymphocytes % (manual) 7 (10.0-50.0); Monocytes % (manual) 8 (0-12)
[2020-08-10] MEDS: ENOXAPARIN SOD 60 MG/0.6 ML SYRINGE SC SCH ×2 (09:19→22:15)
[2020-08-10] MEDS: FAMOTIDINE (10MG/ML) 2ML VL IV SCH ×2 (09:20→22:15)
[2020-08-10] MEDS: FUROSEMIDE 40 MG/4 ML VIAL IV SCH (09:20)
[2020-08-10] MEDS: ZINC SULFATE 220mg CAP or TAB PO SCH (09:20)
[2020-08-10] MEDS: MULTIPLE VITAMIN TAB PO SCH (09:21)
[2020-08-10] MEDS: LORazepam 2MG/ML-1ML VIAL IV PRN (09:21)
[2020-08-10] MEDS: ASCORBIC ACID 500 MG TAB PO SCH ×2 (09:21→22:00)
[2020-08-10] MEDS: CHOLECALCIFEROL (VITD3) 2,000 UNIT CAP/TAB PO SCH (09:21)
[2020-08-10] MEDS: D5W 5% 1,000 ML IV SCH ×2 (10:00→20:29)
[2020-08-10 15:36] VITALS: BP 96/75
[2020-08-10 16:01] VITALS: BP 127/76
[2020-08-10] MEDS: PPN PER PHARMACY IV NR ×6 (20:30)
[2020-08-11] VITALS: BP 103/65
[2020-08-11] MEDS: LORazepam 2MG/ML-1ML VIAL IV PRN ×2 (02:41→16:33)
[2020-08-11] MEDS: ACCU-CHEK COMFORT CURVE STRIP VI SCH ×4 (05:47→23:37)
[2020-08-11] MEDS: BUDESONIDE (INHALATION) 180 MCG IH IN SCH ×2 (05:55→20:16)
[2020-08-11] MEDS: PIPERACILLIN-TAZOB 3.375GM 100 ML IV SCH ×3 (05:56→21:54)
[2020-08-11] MEDS: InsuLIN REG 1unit/0.01ml Soln (100units/ml) SC SCH ×4 (05:58→23:44)
[2020-08-11 06:11] LABS: Mean Corpuscular Hemoglobin 31.5 pg (28.0-32.0); Mean Corpuscular Hgb Conc. 33.3 g/dL (32.0-36.0); Mean Corpuscular Volume 94.8 fL (80.0-100.0); Red Blood Cells 5.38 10^6/uL (4.5-5.90); Red Cell Distribution Width 13.5 % (11.8-14.3); White Blood Cell 29.5 10^3/uL (4.4-10.8)
[2020-08-11 06:25] LABS: Potassium 3.2 mmol/L (3.5-5.1)
[2020-08-11 06:31] LABS: Albumin 2.7 g/dL (3.4-5.0); Bilirubin, Total 2.5 mg/dL (0.2-1.0); Calcium 8.4 mg/dL (8.5-10.1); Magnesium 3.8 mg/dL (1.6-2.6); Phosphorus 3.6 mg/dL (2.5-4.90); Total Protein 6.3 g/dL (6.4-8.2)
[2020-08-11 06:45] LABS: Basophils % (manual) 0 (0.0-2.0); Blast Cells 0; Eosinophils % (manual) 0 (0-7); Myelocytes % 0; Promyelocytes % 0; Reactive Lymphocytes 0
[2020-08-11] MEDS: D5W 5% 1,000 ML IV SCH ×2 (06:50→16:00)
[2020-08-11 08:00] VITALS: BP 102/72
[2020-08-11 08:02] LABS: Band Neutrophils % (manual) 6; Lymphocytes % (manual) 3 (10.0-50.0); Metamyelocytes % 1; Monocytes % (manual) 4 (0-12)
[2020-08-11] MEDS: ZINC SULFATE 220mg CAP or TAB PO SCH (10:00)
[2020-08-11] MEDS: ASCORBIC ACID 500 MG TAB PO SCH ×2 (10:00→21:46)
[2020-08-11] MEDS: CHOLECALCIFEROL (VITD3) 2,000 UNIT CAP/TAB PO SCH (10:00)
[2020-08-11] MEDS: MULTIPLE VITAMIN TAB PO SCH (10:00)
[2020-08-11] MEDS: FAMOTIDINE (10MG/ML) 2ML VL IV SCH ×2 (10:20→21:54)
[2020-08-11] MEDS: FUROSEMIDE 40 MG/4 ML VIAL IV SCH (10:20)
[2020-08-11] MEDS: ENOXAPARIN SOD 60 MG/0.6 ML SYRINGE SC SCH ×2 (10:21→21:55)
[2020-08-11] MEDS ORDERED: POTASSIUM CHL 20MEQ/100ML 100 ML IV ONE ×2 (10:30→17:30)
[2020-08-11 15:53] LABS: INR 1.25 (0.9-1.15); Partial Thromboplastin Time 30.7 sec (23.0-31.2)
[2020-08-11 16:00] VITALS: BP 89/49
[2020-08-11] MEDS ORDERED: POTASSIUM CHL 20MEQ/100ML 100 ML IV SCH (17:00)
[2020-08-11] MEDS ORDERED: LIDOCAINE 1% (LOCAL ANESTH.) PF 5ml SDV ID ONE (17:15)
[2020-08-11] MEDS ORDERED: PPN PER PHARMACY IV NR ×8 (20:00)
[2020-08-11] MEDS: PPN PER PHARMACY IV NR ×6 (20:09)
[2020-08-11] MEDS: SODIUM CHLOR 0.9% PF (SALINE LOCK) 10ML VIAL/SYR IV SCH (21:46)
[2020-08-12] VITALS: BP 106/69
[2020-08-12] MEDS: D5W 5% 1,000 ML IV SCH ×3 (02:00→22:00)
[2020-08-12 05:40] LABS: Hematocrit 47.9 % (41.0-53.0); Hemoglobin 16.2 g/dL (13.5-17.5); Mean Corpuscular Hemoglobin 31.7 pg (28.0-32.0); Mean Corpuscular Hgb Conc. 33.9 g/dL (32.0-36.0); Mean Corpuscular Volume 93.6 fL (80.0-100.0); Red Blood Cells 5.12 10^6/uL (4.5-5.90); Red Cell Distribution Width 13.4 % (11.8-14.3); White Blood Cell 28.8 10^3/uL (4.4-10.8)
[2020-08-12] MEDS: ACCU-CHEK COMFORT CURVE STRIP VI SCH ×4 (05:50→23:42)
[2020-08-12] MEDS: PIPERACILLIN-TAZOB 3.375GM 100 ML IV SCH ×3 (05:50→21:14)
[2020-08-12] MEDS: InsuLIN REG 1unit/0.01ml Soln (100units/ml) SC SCH ×4 (05:57→23:44)
[2020-08-12 06:10] LABS: Band Neutrophils % (manual) 0; Basophils % (manual) 0 (0.0-2.0); Blast Cells 0; Metamyelocytes % 0; Myelocytes % 0; Promyelocytes % 0; Reactive Lymphocytes 0
[2020-08-12] MEDS: BUDESONIDE (INHALATION) 180 MCG IH IN SCH ×2 (06:19→18:33)
[2020-08-12 07:51] VITALS: BP 113/66
[2020-08-12 08:02] LABS: Potassium 4.5 mmol/L (3.5-5.1); Sodium 148 mmol/L (136-145)
[2020-08-12 08:03] LABS: Alanine Aminotransferase 72 U/L (16-61); Alkaline Phosphatase 159 U/L (45-117); Anion Gap 6 (5-15); Aspartate Aminotransferase 77 U/L (15-37); BUN/Creatinine Ratio 48.6; Blood Urea Nitrogen 86 mg/dL (7-18); Calcium 8.4 mg/dL (8.5-10.1); Carbon Dioxide 29 mmol/L (21-32); Chloride 113 mmol/L (98-107); GFR African American 48 mL/min; GFR Non-African American 40 mL/min; Glucose 133 mg/dL (74-106)
[2020-08-12 08:04] LABS: Albumin 2.5 g/dL (3.4-5.0); Bilirubin, Total 2.3 mg/dL (0.2-1.0); Magnesium 3.6 mg/dL (1.6-2.6); Total Protein 6.5 g/dL (6.4-8.2); Triglycerides 313 mg/dL (< 150)
[2020-08-12 08:33] LABS: Eosinophils % (manual) 1 (0-7); Lymphocytes % (manual) 12 (10.0-50.0); Monocytes % (manual) 11 (0-12)
[2020-08-12] MEDS: FUROSEMIDE 40 MG/4 ML VIAL IV SCH (09:54)
[2020-08-12] MEDS: FAMOTIDINE (10MG/ML) 2ML VL IV SCH ×2 (09:54→21:14)
[2020-08-12] MEDS: MULTIPLE VITAMIN TAB PO SCH (09:55)
[2020-08-12] MEDS: CHOLECALCIFEROL (VITD3) 2,000 UNIT CAP/TAB PO SCH (09:55)
[2020-08-12] MEDS: ZINC SULFATE 220mg CAP or TAB PO SCH (09:55)
[2020-08-12] MEDS: ENOXAPARIN SOD 60 MG/0.6 ML SYRINGE SC SCH ×2 (09:55→21:14)
[2020-08-12] MEDS: ASCORBIC ACID 500 MG TAB PO SCH ×2 (09:55→21:14)
[2020-08-12] MEDS: SODIUM CHLOR 0.9% PF (SALINE LOCK) 10ML VIAL/SYR IV SCH ×2 (09:55→21:14)
[2020-08-12] MEDS: LORazepam 2MG/ML-1ML VIAL IV PRN (11:14)
[2020-08-12 15:42] VITALS: BP 126/60
[2020-08-12] MEDS ORDERED: PPN PER PHARMACY IV NR ×7 (20:00)
[2020-08-12 23:45] VITALS: BP 109/49
[2020-08-13] MEDS: LORazepam 2MG/ML-1ML VIAL IV PRN (03:03)
[2020-08-13] MEDS: ACCU-CHEK COMFORT CURVE STRIP VI SCH ×2 (05:47→12:00)
[2020-08-13] MEDS: PIPERACILLIN-TAZOB 3.375GM 100 ML IV SCH ×2 (05:47→14:06)
[2020-08-13] MEDS: InsuLIN REG 1unit/0.01ml Soln (100units/ml) SC SCH ×2 (05:53→12:00)
[2020-08-13 06:11] LABS: Hematocrit 44.3 % (41.0-53.0); Hemoglobin 14.7 g/dL (13.5-17.5)
[2020-08-13 06:13] LABS: Mean Corpuscular Hgb Conc. 33.1 g/dL (32.0-36.0); Mean Corpuscular Volume 96.6 fL (80.0-100.0); Red Blood Cells 4.59 10^6/uL (4.5-5.90)
[2020-08-13 06:26] LABS: Potassium 4.6 mmol/L (3.5-5.1)
[2020-08-13 06:27] LABS: Basophils % (manual) 0 (0.0-2.0); Blast Cells 0; Eosinophils % (manual) 0 (0-7); Promyelocytes % 0; Reactive Lymphocytes 0
[2020-08-13 06:34] LABS: Albumin 2.3 g/dL (3.4-5.0); BUN/Creatinine Ratio 32.6; Bilirubin, Total 1.9 mg/dL (0.2-1.0); Calcium 7.5 mg/dL (8.5-10.1); Magnesium 3.4 mg/dL (1.6-2.6); Total Protein 5.8 g/dL (6.4-8.2)
[2020-08-13] MEDS: BUDESONIDE (INHALATION) 180 MCG IH IN SCH (06:55)
[2020-08-13 07:02] LABS: Phosphorus 8.7 mg/dL (2.5-4.90)
[2020-08-13 08:00] VITALS: BP 129/77
[2020-08-13] MEDS: MULTIPLE VITAMIN TAB PO SCH (10:00)
[2020-08-13] MEDS: FUROSEMIDE 40 MG/4 ML VIAL IV SCH (10:00)
[2020-08-13] MEDS: CHOLECALCIFEROL (VITD3) 2,000 UNIT CAP/TAB PO SCH (10:00)
[2020-08-13] MEDS: ASCORBIC ACID 500 MG TAB PO SCH (10:00)
[2020-08-13] MEDS: ENOXAPARIN SOD 60 MG/0.6 ML SYRINGE SC SCH (10:00)
[2020-08-13] MEDS: ZINC SULFATE 220mg CAP or TAB PO SCH (10:00)
[2020-08-13] MEDS: FAMOTIDINE (10MG/ML) 2ML VL IV SCH (10:08)
[2020-08-13] MEDS: SODIUM CHLOR 0.9% PF (SALINE LOCK) 10ML VIAL/SYR IV SCH (10:08)
[2020-08-13] MEDS: D5W 5% 1,000 ML IV SCH (10:09)
[2020-08-13] MEDS ORDERED: SODIUM CHLORIDE 0.9% 1,000 ML IV SCH (11:00)
[2020-08-13 11:31] LABS: Band Neutrophils % (manual) 45; Lymphocytes % (manual) 5 (10.0-50.0); Metamyelocytes % 3; Monocytes % (manual) 6 (0-12); Myelocytes % 1
[2020-08-13] MEDS ORDERED: LINEZOLID 600MG/300ML 300 ML IV SCH (13:00)
[2020-08-13] MEDS ORDERED: PPN PER PHARMACY IV NR ×6 (20:00)
== END 2020-08-13 18:15 | DRG 177 ==
LOC: ER 16:20 → TELE 16:21 → TELE-WESTW 07-29 19:54 → TELE-E-ADS 08-03 23:33 → TELE-WESTW 08-13 12:20 → TELE-E-ADS 08-13 12:23
PROVIDERS: ADMIT Nurse Practitioner Family; ATTEND Internal Medicine Pulmonary Disease
PROC: XW033E5 Introduction of Remdesivir Anti-infective into Peripheral Vein, Percutaneous Approach, New Technology Group 5 (ICD-10-PCS; 2020-07-29)
PROC: XW13325 Transfusion of Convalescent Plasma (Nonautologous) into Peripheral Vein, Percutaneous Approach, New Technology Group 5 (ICD-10-PCS; 2020-07-29)
PROC: XW033H5 Introduction of Tocilizumab into Peripheral Vein, Percutaneous Approach, New Technology Group 5 (ICD-10-PCS; principal; 2020-08-01)
PROC: 5A09557 Assistance with Respiratory Ventilation, Greater than 96 Consecutive Hours, Continuous Positive Airway Pressure (ICD-10-PCS; 2020-08-02)
PROC: 3E0336Z Introduction of Nutritional Substance into Peripheral Vein, Percutaneous Approach (ICD-10-PCS; 2020-08-08)
PROC: 02HV33Z Insertion of Infusion Device into Superior Vena Cava, Percutaneous Approach (ICD-10-PCS; 2020-08-11)
DX: U07.1 COVID-19 (principal); J12.82 Pneumonia due to coronavirus disease 2019; J96.01 Acute respiratory failure with hypoxia; N17.0 Acute kidney failure with tubular necrosis; G93.41 Metabolic encephalopathy; E44.0 Moderate protein-calorie malnutrition; E87.0 Hyperosmolality and hypernatremia; E11.9 Type 2 diabetes mellitus without complications; I10 Essential (primary) hypertension; Z66 Do not resuscitate; D89.839 Cytokine release syndrome, grade unspecified; Z79.4 Long term (current) use of insulin; Z68.27 Body mass index [BMI] 27.0-27.9, adult
CPT/HCPCS: 36415; 36430; 36569; 36600; 71045; 80048; 80053; 80076; 81001; 82040; 82306; 82728; 82805; 82962; 83036; 83615; 83735; 84100; 84443; 84478; 84484; 85007; 85025; 85027; 85379; 85610; 85730; 86141; 86850; 86900; 86901; 87040; 93005; 93970; 94640; 94660; 96365; 96372; 96375; G0378; J1100; J1815; J2405; J2543; J3480; J3490